=== PATIENT | male | born 1980 | race Hispanic/Latino ===

== ENCOUNTER 2022-03-30 12:52 | Emergency (ER) | payer OTHER ==
[~2022-03-30] VITALS: Ht 185.4 cm; Wt 120.2 kg
[2022-03-30] MEDS ORDERED: PREDNISONE 20 MG TAB PO ONE (15:45)
[2022-03-30] MEDS ORDERED: CYCLOBENZAPRINE10 MG PO (15:46)
[2022-03-30] MEDS ORDERED: PREDNISONE50 MG PO (15:46)
[2022-03-30] MEDS ORDERED: HYDROCODON-ACE1 EAC9 PO (15:47)
[2022-03-30] MEDS ORDERED: PREDNISONE 20 MG TAB ONE (15:49)
== END 2022-03-30 15:55 | disposition home or self-care (01) ==
LOC: FSED 13:04
DX: M54.12 Radiculopathy, cervical region (principal); I10 Essential (primary) hypertension; F17.210 Nicotine dependence, cigarettes, uncomplicated
CPT/HCPCS: 99283; J7512

== ENCOUNTER 2022-07-22 10:41 | Emergency (ER) | payer OTHER ==
[~2022-07-22] VITALS: Ht 177.8 cm; Wt 90.7 kg
[~2022-07-22 10:41] MED LIST: CYCLOBENZAPRINE10 MG PO; HYDROCODON-ACE1 EAC9 PO; PREDNISONE50 MG PO
[2022-07-22] MEDS ORDERED: TOBRAMYCIN SULFA5 ML OS ×2 (11:30→11:50)
[2022-07-22 11:45] VITALS: BP 139/95
== END 2022-07-22 11:50 | disposition home or self-care (01) ==
LOC: FSED 10:49
DX: H10.9 Unspecified conjunctivitis (principal); I10 Essential (primary) hypertension; F17.210 Nicotine dependence, cigarettes, uncomplicated
CPT/HCPCS: 99282

== ENCOUNTER 2022-10-17 19:48 | Emergency (ER) | payer OTHER ==
[~2022-10-17] VITALS: Ht 182.9 cm; Wt 119.7 kg
[~2022-10-17 19:48] MED LIST changes: +TOBRAMYCIN SULFA5 ML OS
[2022-10-17] MEDS ORDERED: AMOXICILLIN/CLAVULANATE K 875 MG TAB PO STA (20:34)
[2022-10-17] MEDS ORDERED: IBUPROFEN 600 MG TAB PO STA (20:37)
[2022-10-17] MEDS ORDERED: TETANUS/DIPHTHERIA TOX ADULT 0.5 ML SYR IM ONE (20:45)
[2022-10-17] MEDS ORDERED: AMOXICILLIN/CLAVULANATE K 875 MG TAB ONE (21:12)
[2022-10-17] MEDS ORDERED: IBUPROFEN 600 MG TAB ONE (21:12)
[2022-10-17] MEDS ORDERED: TETANUS/DIPHTHERIA TOX ADULT 0.5 ML SYR ONE (21:13)
[2022-10-17] MEDS ORDERED: HYDROCODONE/APAP 5MG-325MG TAB PO ONE (21:15)
[2022-10-17] MEDS ORDERED: BACITRACIN ZINC 0.9GM TP ONE ×2 (21:27→23:30)
[2022-10-17] MEDS ORDERED: AMOX TR-K CLV1 EAC2 PO (21:31)
[2022-10-17] MEDS ORDERED: ULTRAM 50MG50 MG PO (21:32)
[2022-10-17 23:03] VITALS: BP 138/85; PULSE 84; RESP 18; TEMP 98.3; O2SAT 98
== END 2022-10-17 22:03 | disposition home or self-care (01) ==
LOC: FSED 20:08
DX: S50.872A Other superficial bite of left forearm, initial encounter (principal); W54.0XXA Bitten by dog, initial encounter; Y92.89 Other specified places as the place of occurrence of the external cause; I10 Essential (primary) hypertension; F17.210 Nicotine dependence, cigarettes, uncomplicated
CPT/HCPCS: 90471; 90714; 99283